=== PATIENT | female | born 1940 | race Caucasian/White ===

== ENCOUNTER → 2016-07-18 | Day surgery (SDC) | payer MEDICARE, OTHER ==
[~2016-07-18] MED LIST: ACIDOPHILUS PO; ACIDOPHILUS-PE1 EAC1 PO; ADVAIR 1001 DISK W/D PO; ADVAIR 250-501 EACH INH; ALBUTEROL17 GM INH; ALBUTEROL20 ml INH; ASACOL HD800 MG PO; ASPIRIN81 M2 PO; B-COMPLEX-VITA1 EACH PO; BENTYL20 M1 PO; BUSPAR5 M1 PO; CALCIUM + VITAM1 TAB PO; CHLORTABS4 MG PO; CLARITIN10 M2 PO; CLARITIN10 M3 PO; FISH OIL EC 1,1 EACH; FUROSEMIDE40 MG PO; GINGER ROOT550 M1 PO; GLUCOSAMINE &1 EACH PO; HYDROCODON-ACE1 EAC7 PO; K-DUR20 ME1; KEFLEX500 M2 PO; KLONOPIN1 MG PO; MICRO-K10 ME2 PO; MILK OF MAGNESIA PO; MIRTAZAPINE30 M1 PO; MULTI-VITAMIN1 EAC1 PO; NAPROSYN250 M1 PO; NAPROSYN500 MG PO; NAPROXEN250 MG PO; NEURONTIN100 MG PO; NEXIUM PO; NORVASC10 MG PO; PLENDIL10 MG PO; PRAVACHOL PO; PRAVASTATIN SOD40 MG PO; ROBINUL1 MG PO; ROBITUSSIN A-C S5 ML PO; SEROQUEL XR400 M1 PO; SINGULAIR PO; SYMBICORT INH; TRIAMTERENE HCT PO; TRIAMTERENE-HC1 EAC1 PO; TYLENOL EXTRA500 M1 PO; VITAMIN C500 M5 PO; VITAMIN D31000 UNIT PO; VITAMIN E400 UNI2 PO; ZINC50 M1 PO; ZOLOFT PO
--- NOTE | ~2016-07-18 | ECT ---
Unit #: [id number] #: [id number] Patient: GIORGIO TAVERAS [id number] [place] [id number] O MR#: [id number] NAME: GIORGIO TAVERAS. ROOM: Age: 76 Sex: F Admission Date: 07/18/2016 : 1940 Discharge Date: Attending Physician: Jose Weber M.D. Referring Physician: Jose Weber M.D. Primary Care Physician: Primary Care Physician No ECT NOTE DATE OF TREATMENT 07/18/2016 TREATMENT NUMBER 34 maintenance TREATMENT MODALITY Unilateral ECT. ANESTHESIA Glycopyrrolate: 0.2 mg Brevital: 100 mg Succinylcholine: 100 mg TREATMENT PARAMETERS Charge: 576 millicoulombs Pulse Width: 1.0 milliseconds Frequency: 60 Hertz Duration: 6 seconds Current: 800 milliamps TREATMENT DELIVERED Energy: 119 joules Impedance: 249 ohms Charge: 576 millicoulombs SEIZURE MEASURES OMS: 32 seconds EE seconds COMPLICATIONS None. SUMMARY The patient had a good seizure with OMS and EEG measures. Depression has started coming back in last week or 2, psychomotor retardation, poor focus and concentration loss of interest in activities. No suicidal or homicidal ideation is noted. I will hold off on another maintenance ECT and just kind of watch and see how she does. She will follow up with me in my office. DIFFERENTIAL DIAGNOSIS [place] I: F33.2. [place] II: Deferred. Unit #: [id number] #: [id number] Patient: GIORGIO TAVERAS [place] III: Nothing acute. Dictated by... Jose Weber M.D. IKE/isi TD: 07/19/2016 02:20 JOB #: [id number] ECT NOTE Page 1 of 1 X Jose Weber MD <ELECTRONICALLY SIGNED> 12/18/16 1702 X ECT
== END | disposition home or self-care (01) ==
LOC: CSUR 08:30
DX: F33.2 Major depressive disorder, recurrent severe without psychotic features (principal); K21.9 Gastro-esophageal reflux disease without esophagitis; J44.9 Chronic obstructive pulmonary disease, unspecified; K59.00 Constipation, unspecified; M19.90 Unspecified osteoarthritis, unspecified site; Z79.899 Other long term (current) drug therapy; Z90.710 Acquired absence of both cervix and uterus; Z88.2 Allergy status to sulfonamides; Z88.8 Allergy status to other drugs, medicaments and biological substances
CPT/HCPCS: 90870; J0330; J1885

== ENCOUNTER → 2016-08-29 | Day surgery (SDC) | payer MEDICARE, OTHER ==
--- NOTE | ~2016-08-29 | ECT ---
Unit #: [id number] #: [id number] Patient: GIORGIO TAVERAS [id number] [place] [id number] O MR#: [id number] NAME: GIORGIO TAVERAS ROOM: Age: 76 Sex: F Admission Date: 08/29/2016 : 1940 Discharge Date: Attending Physician: Jose Weber M.D. Primary Care Physician: Primary Care Physician No ECT NOTE DATE OF TREATMENT 08/29/2016 TREATMENT NUMBER 35, maintenance TREATMENT MODALITY Unilateral ECT ANESTHESIA Glycopyrrolate: 0.2 mg Brevital: 100 mg Succinylcholine: 90 mg TREATMENT PARAMETERS Charge: 576 millicoulombs Pulse Width: 1.0 milliseconds Frequency: 60 Hertz Duration: 6 seconds Current: 800 milliamps TREATMENT DELIVERED Energy: 118.6 joules Impedance: 247 ohms Charge: 576 millicoulombs SEIZURE MEASURES OMS: 35 seconds EE seconds COMPLICATIONS None. SUMMARY The patient had a good seizure with OMS and EEG measures. Depression seems to have come back a little bit over the last couple of weeks. Psychomotor retardation and poor focus and concentration, loss of interest in activities, poor sleep. No suicidal or homicidal ideation is noted. I will continue her maintenance ECT in the next couple of months. She will call me when she feels like she needs to be back in. DIFFERENTIAL DIAGNOSES AX[place] I: F33.2. AXIS II: Deferred. Unit #: [id number] #: [id number] Patient: GIORGIO TAVERAS AXIS III: Nothing acute. Dictated by.. . Jose Weber M.D. IKE/marilu TD: 08/29/2016 20:50 JOB #: [id number] ECT NOTE Page 1 of 1 X Jose Weber MD <ELECTRONICALLY SIGNED> 11/26/16 1207 X ECT
== END | disposition home or self-care (01) ==
LOC: CSUR 07:53
DX: F33.2 Major depressive disorder, recurrent severe without psychotic features (principal); I10 Essential (primary) hypertension; E78.5 Hyperlipidemia, unspecified; J44.9 Chronic obstructive pulmonary disease, unspecified; M19.90 Unspecified osteoarthritis, unspecified site; G25.81 Restless legs syndrome; Z88.2 Allergy status to sulfonamides; Z88.8 Allergy status to other drugs, medicaments and biological substances; Z79.82 Long term (current) use of aspirin; Z79.899 Other long term (current) drug therapy; Z90.710 Acquired absence of both cervix and uterus; Z96.642 Presence of left artificial hip joint; Z98.890 Other specified postprocedural states
CPT/HCPCS: 90870; J1885